=== PATIENT | female | born 1975 | race African-American/Black ===

== ENCOUNTER 2017-02-15 23:38 | Emergency (ER) | payer OTHER ==
[2017-02-16 03:01] VITALS: BP 124/83
== END 2017-02-16 03:01 | disposition home or self-care (01) ==
LOC: ED 23:38
DX: R07.89 Other chest pain (principal); E78.00 Pure hypercholesterolemia, unspecified; Z90.710 Acquired absence of both cervix and uterus
CPT/HCPCS: J1885; Q0092

== ENCOUNTER 2019-01-08 14:50 | Inpatient (IN) | payer BC ==
[~2019-01-08] VITALS: Ht 167.6 cm; Wt 72.6 kg
--- NOTE | 2019-01-08 14:58 | NUR ---
RT AT BEDSIDE. DR STACY AT BEDSIDE.
--- NOTE | 2019-01-08 14:58 | NUR ---
PT BIB SELF C/O SOB, CP AND HEADACHE, STS X2 WEEKS AGO SHE "FLEW FROM HERE TO [facility], FROM [facility] TO [place], [place] TO [place] [place] [facility]", STS SHE TRAVELS FOR WORK", PT STS "I WAS SITTING NEXT TO A FAY THAT HAD A NASTY COUGH, AND EVER SINCE THEN I'VE BEEN COUGHING". STS THE PASSED 2 DAYS SOB HAS INCREASED". PT WAS WHEELED INTO BED 2A AND BEDSIDE-TRIAGED. IV 18G INITIATED TO RAC. PT IMMEDIATELY PLACED ON FULL CM. CALL LIGHT WITHIN REACH. RT KINSEY AT BEDSIDE.
--- NOTE | 2019-01-08 15:06 | NUR ---
BLAIR CARVAJAL AT BEDSIDE FOR EKG.
--- NOTE | 2019-01-08 15:13 | NUR ---
PT HANDED ME HER PHONE, STS "TALK TO MY SON PLEASE TELL HIM WHERE I AM", SPOKE WITH SON JAMESON AND MADE AWARE OF PT'S LOCATION, JAMESON VERBALIZED UNDERSTANDING, STS HE IS ON HIS WAY.
--- NOTE | 2019-01-08 15:15 | NUR ---
PT MEDICATED PER EMAR.
[2019-01-08 15:18] LABS: BASOPHIL % 0.8 % (0-2); PLATELET COUNT 265 x10^3mcL (130-400); RED CELL DISTRIBUTION WIDTH 13.2 % (11.5-14.5)
--- NOTE | 2019-01-08 15:24 | NUR ---
XRAY AT BEDSIDE.
[2019-01-08 15:25] LABS: CALCIUM 9.1 mg/dL (8.5-10.1); CARBON DIOXIDE 28.1 mmol/L (21-32); CHLORIDE SERUM 105 mmol/L (98-107); GFR1 > 60 mL/min; GLUCOSE SERUM 106 mg/dL (74-106); POTASSIUM SERUM 3.5 mmol/L (3.5-5.1); SODIUM SERUM 142 mmol/L (136-145)
--- NOTE | 2019-01-08 15:29 | NUR ---
SPOKE WITH RT KINSEY, AND MADE AWARE OF PT'S BREATHING TX, VERBALIZED UNDERSTANDING.
[2019-01-08 15:30] LABS: ALBUMIN 3.6 g/dL (3.4-5.0); ALKALINE PHOSPHATASE 65 U/L (46-116); ALT/SGPT 23 U/L (14-59); AST/SGOT 11 U/L (15-37); BILIRUBIN TOTAL 0.3 mg/dL (0.20-1.00); TOTAL PROTEIN, SERUM 7.7 g/dL (6.4-8.2)
--- NOTE | 2019-01-08 15:35 | NUR ---
PT REPORTS SHARP R SIDED ANTERIOR CHEST PAIN, NOTED TO HAVE AN INCREASE IN RATE OF BREATHING, PT COACHED ON SLOWER BREATHING TECHNIQUES, PT TOLERATED WELL, NOTED TO HAVE A SLOWER BREATHING RATE.
--- NOTE | 2019-01-08 15:39 | NUR ---
RT AT BEDSIDE FOR BREATHING TX.
--- NOTE | 2019-01-08 17:40 | NUR ---
PT STS SHE IS FEELING "TIGHT IN THE CHEST AGAIN", DR STACY MADE AWARE, CAME TO BEDSIDE TO DISCUSS POC WITH PT.
--- NOTE | 2019-01-08 17:45 | NUR ---
RT AT BEDSIDE FOR BREATHING TX.
--- NOTE | 2019-01-08 17:52 | NUR ---
PT MEDICATED PER EMAR, SON AT BEDSIDE.
[2019-01-08] MEDS ORDERED: VENTOLIN H0.09 MG/A1 IH (18:26)
--- NOTE | 2019-01-08 18:48 | NUR ---
PT RETURNED FROM CT. DR STACY AT BEDSIDE TO DISCUSS POC WITH PT AND SON.
--- NOTE | 2019-01-08 19:05 | NUR ---
REPORT GIVEN TO SONIDO RAYMUNDO TO ASSUME CARE OF PT.
--- NOTE | 2019-01-08 19:36 | NUR ---
PT MEDICATED PER ORDER. PT VERBALIZED UNDERSTANDING OF MEDICAITON TEACHING. SEE EMAR FOR DETAILS.
--- NOTE | 2019-01-08 19:46 | NUR ---
REPORT GIVEN TO SONIDO SPEARS TO ASSUME CARE OF PT.
--- NOTE | 2019-01-08 19:57 | NUR ---
RECEIVED PT VIA [employer] FROM E/D, ACCOMPANIED BY RN AND TRANSPORTER. PT A/A/O X 4, CALM, COOPERATIVE; WEARS GLASSES (W/ PT). AMBULATORY, NO GAIT OR BALANCE IMPAIRMENT NOTED WHEN WALKING FROM GUERNEY TO BED. ON TELE # 17, HR 95, NSR, DENIES CHEST PAIN OR DISCOMFORT AT THIS TIME. LUNGS CTAB, CHEST RISING EVENLY, 2LNC, 100%, C/O DRY COUGH. IV SITE RAC 18, CDI. ORIENTED PT TO ROOM, BED CONTROLS, CALL LIGHT SYSTEM. SIDE RAILS UP X 2, BED IN LOW POSITION. WILL ENDORSE TO SONIDO STRONG.
--- NOTE | 2019-01-08 20:07 | NUR ---
PT TAKEN TO TELE FLOOR BY NURSE AND EMT. NO S/S OF DISTRESS. RESP E/U. PT CONNECTED TO MONITOR DURING TRANSFER. IV SITE PATENT. NO S/S OF INFILTRATION. RN AT BEDSIDE TO ASSUME CARE.
[2019-01-08 22:05] VITALS: BP 116/71
--- NOTE | 2019-01-08 22:52 | NUR ---
Awake and verbally responsive. No respiratory distress noted at this time. c/o chest tightness at times. Occ.dry cough noted. On RT protocol. Denies pain. On IV levaquin. No adverse reaction noted. Will cont.to monitor. Call light within reach.
[2019-01-08 22:55] VITALS: BP 116/71
[2019-01-09 04:13] VITALS: BP 143/74
--- NOTE | 2019-01-09 04:19 | NUR ---
Had intermittent sleep. Awake at this time. c/o headache, norco given but very little effect. Medicated as ordered with morphine and ativan for anxiety. Kept comfortable. Afebrile. No neurological deficits. No SOB noted. Had HHNeb treatments. In no apparent distress.
[2019-01-09 06:45] LABS: CALCIUM 8.9 mg/dL (8.5-10.1); CARBON DIOXIDE 22.5 mmol/L (21-32); CHLORIDE SERUM 106 mmol/L (98-107); GFR1 > 60 mL/min; GLUCOSE SERUM 233 mg/dL (74-106); POTASSIUM SERUM 4.2 mmol/L (3.5-5.1); SODIUM SERUM 140 mmol/L (136-145)
[2019-01-09 07:11] LABS: PLATELET COUNT 228 x10^3mcL (130-400); RED CELL DISTRIBUTION WIDTH 13.6 % (11.5-14.5)
--- NOTE | 2019-01-09 07:21 | NUR ---
RECEIVED HAND OFF REPORT FROM NIGHT NURSE. PATIENT SITTING UPRIGHT IN BED AT THIS TIME. ALERT AND AWAKE. COMPLAINING OF FEELING TIRED. DENIES SHORTNESS OF BREATH AT THIS TIME. CALL LIGHT WITHIN REACH OF PATIENT. WILL CONTINUE TO MONIOR
[2019-01-09 07:51] LABS: BASOPHIL % 0 % (0-2)
--- NOTE | 2019-01-09 08:47 | NUR ---
PATIENT COMPLAING OF PAIN AT THIS TIME TO HER CHEST WHEN COUGHING. COUGH PRESENT AND PERSISTANT. RT WITH PATIENT AT THIS TIME. ADMINISTERED PAIN MEDICATION PER AUG. CALL LIGHT WITHIN REACH. FAMILY AT BEDSIDE. WILL CONTINUE T MONITOR
[2019-01-09 09:29] VITALS: BP 139/75
--- NOTE | 2019-01-09 11:13 | NUR ---
PATIENT ASKED FOR BREATHING TREATMENT. MADE RT AWARE, TO SEE PATIENT ON SCHEDULED TIME. INSTRUTED PATIENT TO SIT UP HIGH IN BED TO INCREASE LUNG EXSPANSION. PATIENT LAYING LEFT SIDE IN BED AT THIS TIME. LUNG SOUNDS SLIGHTLY DEMINISHED AT THIS TIME. PATIENT STATED SHE COUGHS WHEN BREATHING TOO DEEPLY. CALL LIGHT WITHIN REACH
--- NOTE | 2019-01-09 11:22 | NUR ---
RT GIVING BREATHING TREATMENT AT THIS TIME
--- NOTE | 2019-01-09 11:36 | NUR ---
ADMINISTERED MEDICATION PER AUG. PATIENT REPORTED IMPROVEMENT IN BREATHING AFTER BREATHING TX FROM RT. COMPLAINING OF SUBSTERNAL CHESTPAIN ON DEEP INSPIRATION AT THIS TIME. DID NOT WANT ANY MEDICATION FOR PAIN. CALL LIGHT WITHIN REACH, WILL CONTINUE TO MONTR
--- NOTE | 2019-01-09 13:04 | NUR ---
PATIENT VISUALIZED RESTING IN BED. LIGHTS OFF, EYES CLOSED, BREATHING UNLABORED AND REGULAR. APAPRENTLY ASLEEP.FAMILY MEMBES AT BEDSIDE. WILL CONTINUE TO MONITOR
[2019-01-09 14:15] VITALS: BP 138/61
--- NOTE | 2019-01-09 14:50 | NUR ---
PATIENT AWAKE SIDE LAYING IN BED. NO COMPLAINTS AT THIS TIME, DISCUSSED PLAN OF CARE WITH PATIENT. NO QUESTIONS IDENTIFIED. INFOMRED PATIEN THAT DR PFEIFFER WILL BE CONSULTING SOON. CALL LIGHT WITHIN REACH
--- NOTE | 2019-01-09 16:09 | NUR ---
PATIENT ALSEEP AT THIS TIME. EYES CLOSED, BREATHING REGULAR AND UNLABORED. DR PFEIFFER HAS SEEN PATIENT, WILL WATCH FOR NOTES AFTER CONSULT.
--- NOTE | 2019-01-09 16:39 | NUR ---
PATIENT COMPLAINING OF HEADACHE AT THIS TIME. REQUESTED TYLENOL. WILL REASSESS PAIN. RECEIVED BREATHING TREATMENT PER AUG.
[2019-01-09 17:03] VITALS: BP 142/61
--- NOTE | 2019-01-09 18:09 | NUR ---
ADMINSTERED MEDICATION PER MAR. PATIENT REPORTING HEAD ACHE HAS MOSTLY SUBSIDED. REDRESSED IV SITE. IV STILL FLUSHING WELL. PATIENT HAD NO OTHER COMPLAINTS AT THIS TIME. CALL LIGHT WITHIN REACH
--- NOTE | 2019-01-09 18:52 | NUR ---
PATIENT COMPLAINING OF 8/10 PAIN TO HEAD, ADMINISTERED MORPHINE PER MAR. WILL REASSESS PAIN. CALL LIGHT WITHIN REACH
--- NOTE | 2019-01-09 19:30 | NUR ---
RECEIVED REPORT FROM AM NURSE. PT LAYING IN BED WITH FAMILY AT BEDSIDE. PT AAOX4. ABLE TO MAKE NEEDS KNOWN. ON TELE# 17 READING NSR. DENIES ANY CP/PRESSURE AT THIS TIME. PALPABLE PULSES TO ALL EXTREMETIES. NO EDEMA NOTED. LUNG SOUNDS CTA ON 2L NC. C/O SOB ON EXERTION. O2 SAT 100%. BREATHING EVEN AND UNLABORED. NO RESP DISTRES NOTED. C/O DRY COUGH AND PAIN 7/10 WHEN COUGHING DESCRIBED SHARP. WILL MEDICATE PER AUG. ABD SOFT AND NONDISTEDED. ACTIVE BOWEL SOUNDS X4 QUAD. LAST BM 01/08/19. VOIDS FREELY BRP. AMBULATORY. IV SL TO RAC FLUSHING WELL. SITE FREE FROM REDNESS AND SWELLING. NO ACUTE DISTRES NOTED. BED AT LOWEST SETTING. SIDE RAILS X2 UP. CALL LIGHT WITHING REACH. WILL CONTINUE TO MONITOR.
[2019-01-09 20:32] VITALS: BP 130/70
--- NOTE | 2019-01-09 20:40 | NUR ---
PT C/O 7/10 H/A PAIN DESCRIBED ACHING. NO RELIEVING FACTORS. MEDICATED WITH PRN TYLENOL PER AUG. WILL CONTINUE TO MONITOR.
--- NOTE | 2019-01-09 21:44 | NUR ---
PT OLD IV SITE TO RAC WAS LEAKING, RE-INSERTED TO LFA WITH 22G.
--- NOTE | 2019-01-09 23:42 | NUR ---
PT C/O 10/10 SHARP PAIN AT HER CHEST UPON COUGHING. REQUESTING PAIN MED. MEDICATED WITH PRN MORPHINE PER AUG. WILL CONTINUE TO MONITOR.
[2019-01-10 05:40] VITALS: BP 116/65
[2019-01-10 06:55] LABS: PLATELET COUNT 227 x10^3mcL (130-400); RED CELL DISTRIBUTION WIDTH 14.1 % (11.5-14.5)
--- NOTE | 2019-01-10 06:59 | NUR ---
PT SLEPT AT INTERVALS THROGHOUT THE NIGHT. BREATHING EVEN AND UNLABORED ON 2L NC. C/O OF PAIN AT HER CHEST WHEN COUGHING. NO OTHER COMPLAINS AT THIS TIME. ALL NEEDS ASSESSED AND ATTENDED TO. IV SL TO LFA FLUSHING WELL. SITE FREE FROM REDNESS AND SWELLING. BED AT LOWEST SETTING. SIDE RAILS X2 UP. CALL LIGHT WITHING REACH. WILL ENDORSE CARE TO AM NURSE.
[2019-01-10 07:18] LABS: CALCIUM 9.3 mg/dL (8.5-10.1); CARBON DIOXIDE 25.3 mmol/L (21-32); CHLORIDE SERUM 109 mmol/L (98-107); CREATININE SERUM 0.8 mg/dL (0.6-1.0); GFR1 > 60 mL/min; GLUCOSE SERUM 102 mg/dL (74-106); POTASSIUM SERUM 3.8 mmol/L (3.5-5.1); SODIUM SERUM 144 mmol/L (136-145)
[2019-01-10 07:22] LABS: BASOPHIL % 0 % (0-2)
--- NOTE | 2019-01-10 07:40 | NUR ---
RECEIVED PT FROM RECYCLING TECH SONIDO. Jennifer/SHWETHA. TELE#17. DENIES CHEST PAIN/PRESSURE. RESPIRATIONS EQUAL AND UNLABORED ON 2L NC. DENIES SOB AT THIS TIME. PT STATES SHE HAS A NONPRODUCTIVE COUGH. PT STATES SHE ONLY FEELS SOB WHEN COUGHING. PT DENIES ANY PAIN AT THIS TIME. IV TO LFA SALINE LOCKED. NO REDNESS OR SWELLING NOTED. WILL CONTINUE TO MONITOR. CALL LIGHT IN REACH. BED IN LOWEST POSITION.
[2019-01-10 08:19] VITALS: BP 142/68
--- NOTE | 2019-01-10 09:15 | NUR ---
PT SITTING UP IN BED. NO ACUTE RESP DISTRESS NOTED ON 2L NC. PT STATES SHE BEEN HAVING A DRY COUGH, BUT NOTHING IS COMING OUT. PT STATES WHEN HER COUGH HAPPENS SHE FEELS SOB. GIVEN PO MEDS. TOLERATED WELL. DR. CAIN AT BEDSIDE ENCOURAGED PT TO GET OUT OF BED TODAY AND WALK. PT VERBALIZED UNDERSTANDING. PT REQUESTING DOCTORS NOTE FOR SON. DR. BETTS SIGNED DOCTORS NOTE, DOCTORS NOTE GIVEN TO PT. WILL CONTINUE TO MONITOR. CALL LIGHT IN REACH. BED IN LOWEST POSITION.
[2019-01-10 11:42] VITALS: BP 157/73
[2019-01-10 11:45] VITALS: BP 142/76
--- NOTE | 2019-01-10 12:46 | NUR ---
PT SITTING UP IN BED. PT HAS NONPRODUCTIVE COUGH THAT IS EXACERBATED ON EXERTION. PT STATES SHE WAS ABLE TO WALK TO THE END OF THE HALLWAY BUT WAS COUGHING THE WHOLE TIME. PT DENIES ANY PAIN AT THIS TIME. IV FLUSHED WELL. NO REDNESS OR SWELLING NOTED. WILL CONTINUE TO MONITOR. CALL LIGHT IN REACH. BED IN LOWEST POSITION.
--- NOTE | 2019-01-10 12:51 | NUR ---
RECEIVED PT FROM REPAIRER PUMP SONIDO. Jennifer/SHWETHA. TELE#17. DENIES CHEST PAIN/PRESSURE. RESPIRATIONS EQUAL AND UNLABORED ON 2L NC. DENIES SOB AT THIS TIME. PT STATES SHE HAS A NONPRODUCTIVE COUGH. PT STATES SHE ONLY FEELS SOB WHEN COUGHING. PT DENIES ANY PAIN AT THIS TIME. IV TO LFA SALINE LOCKED. NO REDNESS OR SWELLING NOTED. WILL CONTINUE TO MONITOR. CALL LIGHT IN REACH. BED IN LOWEST POSITION.
--- NOTE | 2019-01-10 12:55 | NUR ---
RECEIVED PT FROM CHEF FRENCH SONIDO. Jennifer/SHWETHA. TELE#17. DENIES CHEST PAIN/PRESSURE. RESPIRATIONS EQUAL AND UNLABORED ON 2L NC. DENIES SOB AT THIS TIME. PT STATES SHE HAS A NONPRODUCTIVE COUGH. PT STATES SHE ONLY FEELS SOB WHEN COUGHING. PT DENIES ANY PAIN AT THIS TIME. IV TO LFA SALINE LOCKED. NO REDNESS OR SWELLING NOTED. WILL CONTINUE TO MONITOR. CALL LIGHT IN REACH. BED IN LOWEST POSITION.
[2019-01-10 15:53] VITALS: BP 148/78
--- NOTE | 2019-01-10 18:28 | NUR ---
PT SITTING UP IN BED. NO ACUTE RESP DISTRESS NOTED ON RA. PT STATES SHES BEEN ABLE TO COUGH UP SOME MUCOUS THAT IS DARK GREEN AND THICK IN COLOR. PT STATES SHES BEEN HAVING CHEST PRESSURE 7/10. PT STATES SHE HAD IT YESTERDAY. PT STATES MORPHINE HELPS WITH PAIN. MEDICATED PER EMAR. WILL CONTINUE TO MONITOR. CALL LIGHT IN REACH. BED IN LOWEST POSITION.
--- NOTE | 2019-01-10 19:15 | NUR ---
PT RECEIVED A/O X4, ABLE TO MAKE NEEDS KNOWN. TELE #17, DENIES ANY CP/PRESSURE. BREATHING IS EVEN AND UNLABORED ON RA, PT DENIES ANY SOB, NO RESP DISTRESS NOTED. ABD SOFT AND ROUND, BOWEL TONES ACTIVE X4 QUAD, DENIES N/V. VOIDS FREELY, BRP. AMBULATORY WITH STEADY GAIT. PT DENIES HAVING ANY PAIN AT THIS TIME. FAMILY AT BEDSIDE. NO ACUTE DISTRESS NOTED. SL TO LFA, PATENT AND INTACT, SITE WNL. BED IN LOWEST SETTING, SIDE RAILS UP X2, CALL LIGHT WITHIN REACH. WILL CONT TO MONITOR.
[2019-01-10 21:09] VITALS: BP 135/73
[2019-01-10 21:39] VITALS: Ht 167.6 cm; Wt 72.6 kg
--- NOTE | 2019-01-10 23:53 | NUR ---
PT C/O 10/10 RIGHT-SIDED RIB AND CP UPON COUGHING, PRN MORPHINE IVP GIVEN ORDERED. NO ACUTE DISTRESS NOTED. CALL LIGHT WITHIN REACH. WILL CONT TO MONITOR.
[2019-01-11] VITALS (7 sets, daily range): BP systolic 125–174; BP diastolic 74–93
--- NOTE | 2019-01-11 01:15 | NUR ---
PT C/O 01/19 RIGHT-SIDED RIB AND CP PAIN, PRN NORCO GIVEN ORDERED. PT ALSO REQUESTING BREATHING TX, RT AT BEDSIDE. NO ACUTE DISTRESS NOTED. CALL LIGHT WITHIN REACH. WILL CONT TO MONITOR.
--- NOTE | 2019-01-11 05:18 | NUR ---
PT SLEPT AT INTERVALS THROUGHOUT THE EVENING. BREATHING IS EVEN AND UNLABORED, NO RESP DISTRESS NOTED. PT DENIES HAVING ANY PAIN AT THIS TIME. SL TO LFA, PATENT AND INTACT, SITE WNL. NO ACUTE CHANGES ENCOUNTERED DURING SHIFT. ALL NEEDS MET AND ANTICIPATED. PT COMPLIANT WITH NURSING CARE. FAMILY AT BEDSIDE. CALL LIGHT WITHIN REACH. WILL ENODRSE CARE TO AM NURSE.
--- NOTE | 2019-01-11 06:38 | NUR ---
PT C/O 7/10 RIGHT-SIDED RIB AND CP PAIN, PRN MORPHINE IVP GIVEN ORDERED. NO ACUTE DISTRESS NOTED. WILL CONT TO MONITOR.
--- NOTE | 2019-01-11 07:37 | NUR ---
PT IN NO ACUTE DISTRESS. CONTINUITY OF CARE ENDORSED TO YOCASTA HEAD. ALL QUESTIONS AND CONCERNS ADDRESSED.
--- NOTE | 2019-01-11 08:00 | NUR ---
RECEIVED PATIENT ALERT AND ORIETNE DTIMES FOUR. PATIENT HAS BEEN AMBULATORY AND WITH ON AN OFF PAIN TO THE CHEST AND TO THE RIGHT SIDE. PATIENT HAS NEGATIVE CHEST XRAY AND THE LABS ARE WITHOUT ANY ACUTE ISSUES AT THIS TIME. PATIENT HAS BEEN ON LEVQUIN AND SOLUMEDROL. SHE HAS SOME ANXIETY ABOUT HER SYMPTOMS AND SHE STATES SHE HAS ON AND OFF SOB. VITALS AT HIS AM AT 96.7, 74, 18, 165/91, 97% ON ROOM AIR. PATIENT HAS BEEN WITH NEGATIVE CT ANGIO AND HAS NOTED LACTIC AT 2.9 AND 4.9 AND THE WBC ON ADMIT AT 18.4. SHE HAS AT TIMES BEEN TACHYCARDIC AND THE TOPONIN AND THE BNP HAVE BEEN NEGATIVE. APTIENT AHS A HISTORY OF GASTRIC SLEEVE PLACEMENT IN SEPTEMBER AND AN EXTREME WEIGHT LOSS NOTED. PATIENT HAS NO HISTORY OF ASTHMA ALTHOUGH IT IS IN THE H AND P AND SUSPECTED THE REASON FOR HER SOB. PATIENT IS WITHOUT ANY ACUTE DISTRESS AT THIS TIME.
--- NOTE | 2019-01-11 09:59 | NUR ---
SEEN BY THE PHYSICIAN AND WAS TOLD SHE WAS BEING DISCHARGED TO HOME. SHE DOES NOT FEEL COMFORTABEL WITH THIS AND HAS OPTED TO BE SEEN BY THE VOCATIONAL EVALUATOR PRIOR TO LEAVING. WILL ADVISED THE DR INDICATED. SHE HAS NOT BEEN SEEN BY THE VOCATIONAL EVALUATOR YET.
--- NOTE | 2019-01-11 10:03 | NUR ---
CALLED DR BETTS AND ADVISED THE PATIENT IS APREHESIVE ABOUT GOING HOME. ADVISED SHE WANTS TO BE SEEN BY DR PFEIFFER PRIOR TO DISCHARGE. KARYN BETTS IS OK WITH THIS BUT STATES SHE HAS NOTHING MORE HE CAN DO FOR HER HERE. TESTING HAS BEEN NEGATIVE.
--- NOTE | 2019-01-11 15:05 | NUR ---
ISABEL GIVEN HIS LEVAQUIN ORDERED AND THE PTT WILL BE AT 1600. PATIENT IS A BIT BELIGERANT HE WANTS TO BE TAKEN TO KATHERIN MACHADO. EXPLAINED SEVERAL TIMES THAT THERE WAS NO BED AND KATHERIN MACHADO IS AWARE AND HAS CALLED TO CHECK UP ON HIS STATUS. FAMILY AT BEDSIDE AND ANXIOUS TO KNOW ABOUT HIS STATUS WELL. CONTINUED ON HEPARIN ORDERED AND PATIENT HAS BEEN ON FLUIDS WELL. RESPIRATORY HAS BEEN IN SEVERAL TIMES FOR TREATMENTS AND SUCTIONING. PATIENT HAS A WET SOUNDING COUGH. WILL CONTINUE TO MONITOR INDICATED.
--- NOTE | 2019-01-11 15:30 | NUR ---
DR PFEIFFER SAW THE PATIENT AND SPOKE WITH DR BETTS AND THE DISCHARGE ON A HOLD AT THIS TIME. DR MCNAIR TO COVER DR BETTS. PATIENT PER DR PFEIFFER IS STILL WITH SOB AND COUGH.
--- NOTE | 2019-01-11 16:33 | NUR ---
DRY COUGH NOTED AND PATIENT HAS FAMILY AT BEDSIDE AND ATTENTIVE WITH CARE.
--- NOTE | 2019-01-11 19:35 | NUR ---
PT RESTING IN BED, NO ACUTE DISTRESS NOTED. PT AOX4, DENIES BAEZA/DIZZINESS. TELE # 17, SR 82, DENIES CP. PULSES PALPABLE BILAT, DENIES NUMBNESS/TINGLING IN FEET. PT ON HEP SQ, RESP EVEN AND UNLABORED ON RA, PT REPORTS SOB W/ EXERTION. RT PROTOCOL, INCETNIVE SPIROMETER AT BEDSIDE. ABD SOFT, ROUND, PT REPORTS NO BM FOR 4 DAYS, WILL PHONE DR BETTS FOR MILK OG MAG. PT AGREEABLE WITH THIS PLAN. PT VOIDS FREELY W/O DYSURIA. PT AMBULATORY. SKIN INTACT. IV SITE TO THE LFA PATENT, SALINE LOCKED AT THIS TIME. PT ON LEVAQUIN AND SOLUMEDROL. ALL COMFORT AND SAFETY MEASURES PROVIDED FOR, CALL LIGHT WITHIN REACH, BED IN LOWEST POSITION, WILL CONTINUE TO MONITOR.
--- NOTE | 2019-01-11 20:30 | NUR ---
PHONED DR BETTS ABOUT PT REPORTING NO BM FOR 4 DAYS, RECEIVED TELEPHONE ORDER FOR MILK OF MAG 30ML BID PRN CONSTIPATION. WILL MEDICATE PT PER ORDER. PT AGREEABLE WITH PLAN OF CARE AT THIS TME. CALL LIGHT WITHIN REACH, BED IN LOWEST POSITION, WILL CONTINUE TO MONITOR.
--- NOTE | 2019-01-12 02:00 | NUR ---
UPON ASSESSMENT, PT RETURNING FROM RESTROOM WITH ASSISTANCE OF SIGNIFICANT OTHER. PT REPORTED FEELINGS TO HAVE BM YET NOTHING CAME OUT. EDUCATED PT ABOUT AMBULATION ASSISTING WITH PASSAGE OF BM, PT REPORTS SHE WILL TRY TO WALK ABOUT TO DECREASE THE ABD DISCOMFORT. PT DENIES HOT TEA OR SUPPPOSITORY AT THIS TIME. WILL CONTINUE TO ENCOURAGE CONSERVATIVE TX FOR CONSTIPATION THIS EVENING AND FOLLOW UP FOR THE NEED OF SUPPOSITORY IN THE AM. PT VERBALIZES UNDERSTAND AND IS CALM AND COOPERATIVE WITH CARE A THIS TIME. CALL LIGHT WITHIN REACHING, BED IN LOWEST POSITION, WILL CONTINUE TO MONITOR.
--- NOTE | 2019-01-12 02:30 | NUR ---
PROVIDED PT DECAF COFFEE PER REQUEST D/T PT REPORTS PERSISTENT CONSTIPATION AFTER MILK OF MAG. PT REPORTS FEELING MUCH BETTER IN REGARDS TO RESP ISSUES (SOB/FATIGUE), EDUCATED PT ABOUT THE INCREASED DOSE OF SOLUMEDROL THIS EVENING WHICH MAY ATTRIBUTE TO THE RELIEF OF SYMPTOMS BY DECREASING INFLAMMATION. PT VERBALIZES UNDERSTANDING AND WILL WAIT FOR DR'S TO MAKE ROUNDS SINCE SHE FEELS BETTER AND READY TO GO HOME. CALL LIGHT WITHIN REACH, BED IN LOWEST POSITION, WILL CONTINUE TO MONITOR.
--- NOTE | 2019-01-12 05:15 | NUR ---
PT RESTED IN INTERVALS DURING SHIFT, NO ACUTE CHANGES OCCURRING OVERNIGHT. PT REPORTS FEELING MUCH BETTER THIS EVENING PRIOR TO LAST D/T POSSIBLY THE INCREASE DOSE OF SOLUMEDROL PROVIDED LAST NIGHT PER DR. PFEIFFER ORDER. PT NOW C/O CONSTIPATION AND NO BM X4 DAYS. ATTEMPTING CONSERVATIVE MEASURES LAST NIGHT (MILK OF MAG/COFFEE/AMBULATION), NO BM YET. WILL FOLLOW UP AND ASSESS THE NEED FOR SUPPOSITORY. PT VERBALIZES UNDERSTANDING. PT REMAINS ON RA, WITH PERSISTENT INTERMITTENT DRY COUGH. PT RECEIVING BREATHING TX. ALL COMFORT AND SAFETY MEASURES PROVIDED FOR, CALL LIGHT WITHIN REACH, BED IN LOWEST POSITION, WILL CONTINUE TO MONITOR.
[2019-01-12 05:58] VITALS: BP 147/79
[2019-01-12 06:49] LABS: BASOPHIL % 0.2 % (0-2); PLATELET COUNT 235 x10^3mcL (130-400); RED CELL DISTRIBUTION WIDTH 13.8 % (11.5-14.5)
[2019-01-12 06:54] LABS: CALCIUM 9.3 mg/dL (8.5-10.1); CARBON DIOXIDE 30.3 mmol/L (21-32); CHLORIDE SERUM 104 mmol/L (98-107); CREATININE SERUM 0.9 mg/dL (0.6-1.0); GFR1 > 60 mL/min; GLUCOSE SERUM 127 mg/dL (74-106); POTASSIUM SERUM 4.2 mmol/L (3.5-5.1); SODIUM SERUM 142 mmol/L (136-145)
--- NOTE | 2019-01-12 07:16 | NUR ---
ENDORSED ALL CARE TO DAYSHIFT NURSE, NO ACUTE DISTRESS NOTED. ALL QUESTIONS AND CONCERNS ADDRESSED, CALL LIGHT WITHIN REACH, BED IN LOWEST POSITION, WILL CONTINUE TO MONITOR.
--- NOTE | 2019-01-12 07:35 | NUR ---
PT DECLINED HHN TX AT THIS TIME, STATES NO DISTRESS. PT ADVISED TO CALL FOR PRN TX IF NEEDED.
--- NOTE | 2019-01-12 08:00 | NUR ---
RECEIVED PATIENT AWAKE AND STATES SHE FEELS MUCH BETTER AND THINKS SHE CAN GO HOME TODAY. PATIENT AHD THE SOLUMEDROL INCREASED AND THE PATIENT SEEMS TO HAVE A GOOD REACTION FROM THIS. HER LUNGS ARE CLEAR AND THE COUGH IS MINIMAL AND STILL UNPRODUCTIVE. SHE HAS TOLERATED DIET AND FLUIDS WELL. SHE HAS BP MODERATELY ELEVATED BUT THE TACHYCARDIA IS MINIMAL SO FAR TODAY AND NO COMPLAINTS OF ACTUE RESPIRATORY DISTRESS OR CHEST PAIN. PATIENT IS AMBULATOYR AND IWTH SOME TRACE PAPO TO THE LOWER EXTREMTIES. VITALS AT THIS ITME AT 98.0, 86, 18, 147/79, 94% ON ROOM AIR. HX OF GASTRIC SLEEVE, HYSTERECTOMY AND NEW ONSET OF ASTHMA NOTED. PATIENT HAD RECEIVED MOM LAST NIGHT FOR NO BM AND THIS AM HAS HAD A BM. IF CLEAR BY DR PFEIFFER, PATIENT MAY BE DISCHARGE TODAY HOME. WILL CONTINUE TO MONITOR.
[2019-01-12 09:23] VITALS: BP 147/84
--- NOTE | 2019-01-12 10:00 | NUR ---
FAMILY AT BEDSIDE AND SUPPORTIVE WITH CARE.
--- NOTE | 2019-01-12 12:10 | NUR ---
PT REFUSED HHN TX, STATES SHE IS NO DISTRESS. PT ADVISED TO CALL FOR PRN IF TX IS NEEDED.
[2019-01-12 13:12] VITALS: BP 117/73
[2019-01-12 14:38] VITALS: BP 117/73
--- NOTE | 2019-01-12 16:02 | NUR ---
PATIENT ANXIOUS TO GO HOME. GAVE PRESCRIPTIONS INDICATED AND ENCORUAGE TO CARRY HER INHALER WITH HER FOR SOB. SHE WAS GIVEN EDUCATION ON ASTHMA AND TRIGGER AND AVOIDANCE OF SYMPTOMS. SHE IS TO BE ON PREDNISONE ORDERED ALONG WITH LEVAQUIN ORAL. DISCHARGED TO HOME WITH SIGNIFICANT OTHER WITH ALL BELONGINGSAND NO ACUTE DISTRESS.
== END 2019-01-12 15:45 | disposition home or self-care (01) | DRG 202 ==
LOC: ED 14:50 → DU 19:16
PROVIDERS: Emergency Medicine; Internal Medicine; ADMIT Internal Medicine
DX: J45.901 Unspecified asthma with (acute) exacerbation (principal); J96.91 Respiratory failure, unspecified with hypoxia; E87.2 Acidosis; E66.9 Obesity, unspecified; Z90.710 Acquired absence of both cervix and uterus; E78.00 Pure hypercholesterolemia, unspecified; Z90.49 Acquired absence of other specified parts of digestive tract; Z68.25 Body mass index [BMI] 25.0-25.9, adult
CPT/HCPCS: 82962; 83880; 85378; 87804; 94150; G0378; J1644; J1885; J1956; J2270; J2405; J2920; J2930; J3010; J7030; J7050; J7613; J7620; J7626; Q0092; Q9967